=== PATIENT | female | born 1985 | race Caucasian/White ===

== ENCOUNTER 2016-06-16 13:22 | Emergency (ER) | payer MEDICARE, MEDICAID ==
[2016-06-16 13:45] VITALS: BP 91/62
--- NOTE | 2016-06-18 17:38 | UC ---
Abdominal Pain Female HPI - HPI Summary HPI Summary: Right sided flank pain and burning with urination began this evening - History of Current Complaint Chief Complaint: UCGI Stated Complaint: ABDOMINAL PAIN Time Seen by Provider: 06/16/16 13:53 Hx Obtained From: Patient Hx Last Menstrual Period: 06/12/16 ?: No Onset/Duration: Sudden Onset Timing: Constant Severity Initially: Moderate Severity Currently: Moderate Pain Intensity: 8 Pain Scale Used: 0-10 Numeric Location: Discrete At: RLQ - and flank pain Radiates: Yes Radiates to: Flank Character: Aching, Burning Aggravating Factor(s): Nothing Alleviating Factor(s): Nothing Associated Signs and Symptoms: Positive: Back Pain Allergies/Adverse Reactions: Allergies Allergy/AdvReac Type Severity Reaction Status Date / Time Penicillins Allergy Severe Anaphylatic Verified 06/16/16 15:01 Shock Aspirin Allergy Intermediate Hives Verified 06/16/16 15:01 Home Medications: Home Medications busPIRone TAB* [Buspar TAB*] 30 mg PO BID 06/16/16 [History Confirmed 06/16/16] PMH/Surg Hx/FS Hx/Imm Hx Previously Healthy: No Endocrine History Of: Denies: Diabetes, Thyroid Disease, Hyperthyroidism, Hypothyroidism, Dyslipidemia Cardiovascular History Of: Denies: Cardiac Disorders, Hypertension, Pacemaker/ICD, Myocardial Infarction , Congestive Heart Failure, Atrial Fibrillation, Deep Vein Thrombosis, Bleeding Disorders Respiratory History Of: Reports: Asthma Denies: COPD, Bronchitis, Pneumonia, Pulmonary Embolism GI/ History Of: Reports: Gastroesophageal Reflux Denies: Ulcer, Gastrointestinal Bleed, Gall Bladder Disease, Kidney Stones, Diverticulitis, Renal Disease, Urosepsis Neurological History Of: Denies: TIA, CVA, Dementia, Seizures, Migraine Psychological History Of: Reports: Anxiety, Depression, Post Traumatic Stress Disorder Cancer History Of: Denies: Lung Cancer, Colorectal Cancer, Breast Cancer, Prostate Cancer, Cervical Cancer Other History Of: Negative For: HIV, Hepatitis B, Hepatitis C, Anticoagulant Therapy - Surgical History Surgical History: Yes Surgery Procedure, Year, and Place: 2009 tubal ligation. ovarian cyst removal. wisdom teeth (2 removed). Cervical dysplagia - Family History Known Family History: Positive: Hypertension, Diabetes - Social History Occupation: Unemployed Lives: With Family Alcohol Use: None Substance Use Type: None Smoking Status (MU): Never Smoked Tobacco Have You Smoked in the Last Year: No - Immunization History Most Recent Influenza Vaccination: none Review of Systems Constitutional: Negative Skin: Negative Eyes: Negative ENT: Negative Respiratory: Negative Cardiovascular: Negative Gastrointestinal: Abdominal Pain Genitourinary: Negative Motor: Negative Neurovascular: Negative Musculoskeletal: Negative Neurological: Negative Psychological: Negative All Other Systems Reviewed And Are Negative: Yes Physical Exam Triage Information Reviewed: Yes Appearance: Well-Nourished, Ill-Appearing - mild, Pain Distress - mild Vital Signs: Initial Vital Signs Temp 98.3 F 06/16/16 13:37 Pulse 74 06/16/16 13:37 Resp 16 06/16/16 13:37 BP 91/62 06/16/16 13:37 Pulse Ox 100 06/16/16 13:37 Vital Signs Reviewed: Yes Eye Exam: Normal Eyes: Positive: Conjunctiva Clear ENT Exam: Normal ENT: Positive: Normal ENT inspection, Hearing grossly normal. Negative: Trismus , Muffled/hoarse voice Neck exam: Normal Neck: Positive: Supple, Nontender Respiratory Exam: Normal Respiratory: Positive: Chest non-tender, No respiratory distress, No accessory muscle use Cardiovascular Exam: Normal Cardiovascular: Positive: RRR, Pulses Normal, Brisk Capillary Refill Abdominal Exam: Normal Abdomen Description: Positive: No Organomegaly, Soft, CVA Tenderness (R) Bowel Sounds: Positive: Present Musculoskeletal Exam: Normal Musculoskeletal: Positive: Strength Intact, ROM Intact, No Edema Neurological Exam: Normal Neurological: Positive: Alert, Muscle Tone Normal Psychological Exam: Normal Psychological: Positive: Normal Response To Family Skin Exam: Normal Abd Pain Female Course/Dx - Course Course Of Treatment: transfer to [facility] for studies unable to be performed at urgent care this night - Differential Dx/Diagnosis Differential Diagnosis: Bowel Obstruction, Irritable Bowel Syndrome, Ovarian Cyst, Pelvic Inflammatory Disease, Renal Colic Provider Diagnoses: Abd Pain - Physician Notification/Consults Discussed Patient Care With: Oly Rossi Time Discussed With Above Provider: 15:00 Instructed by Provider To: Transfer Discharge - Discharge Plan Condition: Stable Disposition: AGAINST MEDICAL ADVICE
== END 2016-06-16 14:22 | disposition left against medical advice (07) ==
LOC: UCEAST 13:22
DX: R10.31 Right lower quadrant pain (principal); R30.0 Dysuria; M54.9 Dorsalgia, unspecified; Z32.02 Encounter for pregnancy test, result negative; Z88.6 Allergy status to analgesic agent; Z88.0 Allergy status to penicillin
CPT/HCPCS: 81025; 87086; 99212; G0463

== ENCOUNTER 2016-06-16 14:51 | Emergency (ER) | payer MEDICARE, MEDICAID ==
[2016-06-16 17:00] LABS: Hematocrit 29 % (35-47); Hemoglobin 8.7 g/dl (12.0-16.0); Mean Corpuscular HGB Conc 31 g/dl (31-36); Mean Corpuscular Hemoglobin 20 pg (27-31); Mean Platelet Volume 9 um3 (7.4-10.4); Red Blood Count 4.46 10^6/ul (4.0-5.4); Red Cell Distribution Width 18 % (10.5-15); White Blood Count 8.2 10^3/ul (3.5-10.8)
[2016-06-16 17:01] LABS: Comments Flag Yes
[2016-06-16 17:02] LABS: Mean Corpuscular Volume 64 fL (80-97)
[2016-06-16] MEDS ORDERED: Ondansetron INJ* 2 MG/ML VIAL IV ONE (17:13)
[2016-06-16] MEDS ORDERED: Morphine INJ* 4 MG/ML 1 ML CARPUJECT IV ONE (17:13)
[2016-06-16 17:36] LABS: Albumin 3.9 g/dL (3.2-5.2); BUN/Creatinine Ratio 21.3 (8-20); C Reactive Protein 1.25 mg/L (< 5.00); Calcium 8.9 mg/dL (8.6-10.3); EGFR African American 146.2 (>60); EGFR Non-African American 113.7 (>60); Globulin 3.3 g/dL (2-4); Potassium 3.4 mmol/L (3.5-5.0); Total Bilirubin 0.3 mg/dL (0.2-1.0); Total Protein 7.2 g/dL (6.4-8.9)
[2016-06-16] MEDS ORDERED: NS 0.9% 1000 ML* 1,000 ML IV ONE (17:46)
--- NOTE | 2016-06-16 18:43 | RAD ---
INDICATION: Bilateral flank pain. COMPARISON: CT November 13, 2010 TECHNIQUE: Longitudinal and transverse scans of the kidneys were obtained. FINDINGS: Kidneys: The kidneys are normal in size and echogenicity. No renal masses, calculi, or hydronephrosis is seen. The right kidney measures 10.7 x 5.5 x 4.5 cm and the left kidney 11.3 x 4.2 x 5.0 cm. Other: None IMPRESSION: NORMAL STUDY.
--- NOTE | 2016-06-16 18:44 | RAD ---
INDICATION: Pelvic pain COMPARISON: July 22, 2015 TECHNIQUE: Longitudinal and transverse transabdominal scans of the pelvis were obtained. FINDINGS: Uterus: The uterus is normal in size. There are no focal masses. The uterus measures 9.7 x 4.5 x 3.4 cm. Endometrial thickness: The endometrial thickness is measured at 0.8 cm. . Free fluid: There is no significant free fluid . Ovaries: The ovaries are normal in size. The right ovary measures 3.0 x 2.5 x 2.8 cm. The left ovary measures 2.7 x 1.8 x 2.2 cm. There are multiple small follicles bilaterally.. Doppler interrogation demonstrates flow to each ovary. Other: None IMPRESSION: NEGATIVE EXAMINATION.
--- NOTE | 2016-06-16 18:57 | ED ---
Abdominal Pain/Female - HPI Summary HPI Summary: Pt here w/ B/L LBP today. Started yesterday with lower pelvic pain - cramping and dysuria. Last BM was earlier today - "light". Denies exacerbating factors. Thought she had a UTI so took some AZO - denies h/o UTI's, kidney stones. Denies fever, chills, N/V/D, vaginal d/c. Does reports she's sexually active with a long time partner however they had been taking a break and recently rekindled their sexual relationship - have been active quite frequently as of late. No protection. LMP 1 week ago. Had a tubal ligation. Has h/o dysmenorrhea and menorrhagia. Had a cervical ablation - not sure why but denies issues w/ previous ab pain other than when on her period. Since she cannot take NSAID's, takes tylenol and when pain is extremely bad which is rarely, takes a percocet. H/o ovarian cysts. Followed by Dr. Sloan at [place]. GERD - triggered by lifestyle - takes PPI daily. Sx are worse if she misses a dose. - History of Current Complaint Hx Obtained From: Patient Hx Last Menstrual Period: 06/12/16 Pain Intensity: 8 <Oly Rossi - Last Filed: 06/18/16 22:42> <Dayan Garcia - Last Filed: 06/24/16 09:40> - History of Current Complaint Chief Complaint: EDBackInjuryPain Stated Complaint: LOWER BACK PAIN Time Seen by Provider: 06/16/16 16:11 Allergies/Adverse Reactions: Allergies Allergy/AdvReac Type Severity Reaction Status Date / Time Penicillins Allergy Severe Anaphylatic Verified 06/16/16 15:01 Shock Aspirin Allergy Intermediate Hives Verified 06/16/16 15:01 PMH/Surg Hx/FS Hx/Imm Hx Previously Healthy: Yes Endocrine/Hematology History: Denies: Hx Anticoagulant Therapy, Hx Blood Disorders, Hx Diabetes, Hx Thyroid Disease, Hx Unexplained Bleeding Cardiovascular History: Denies: Hx Congestive Heart Failure, Hx Deep Vein Thrombosis, Hx Hypertension , Hx Myocardial Infarction, Hx Pacemaker/ICD Respiratory History: Reports: Hx Asthma Denies: Hx Chronic Obstructive Pulmonary Disease (COPD), Hx Lung Cancer, Hx Pneumonia, Hx Pulmonary Embolism GI History: Reports: Hx Gastroesophageal Reflux Disease - daily PPI Denies: Hx Gall Bladder Disease, Hx Gastrointestinal Bleed, Hx Ulcer, Hx Urosepsis History: Denies: Hx Kidney Stones, Hx Renal Disease Neurological History: Denies: Hx Dementia, Hx Migraine, Hx Seizures, Hx Transient Ischemic Attacks (TIA) Psychiatric History: Reports: Hx Anxiety, Hx Depression - Surgical History Surgery Procedure, Year, and Place: 2009 tubal ligation. ovarian cyst removal. wisdom teeth (2 removed). Cervical dysplagia Infectious Disease History: No Infectious Disease History: Denies: Hx Clostridium Difficile, Hx Hepatitis, Hx Human Immunodeficiency Virus (HIV), Hx of Known/Suspected MRSA, Hx Shingles, Hx Tuberculosis, Hx Known/ Suspected VRE, Hx Known/Suspected VRSA, History Other Infectious Disease, Traveled Outside the [place] in Last 30 Days - Family History Known Family History: Positive: Hypertension, Diabetes - Social History Lives: With Family Alcohol Use: None Hx Substance Use: No Substance Use Type: Reports: None Hx Tobacco Use: No Smoking Status (MU): Never Smoked Tobacco Have You Smoked in the Last Year: No <Oly Rossi - Last Filed: 06/18/16 22:42> Review of Systems Constitutional: Negative Negative: Sore Throat, Ear Ache, Nasal Discharge Negative: Chest Pain Negative: Shortness Of Breath, Cough Gastrointestinal: Other - see HPI Positive: see HPI Musculoskeletal: Other - see HPI Skin: Negative Neurological: Negative Psychological: Normal All Other Systems Reviewed And Are Negative: Yes <Oly Rossi - Last Filed: 06/18/16 22:42> Physical Exam Triage Information Reviewed: Yes Vital Signs On Initial Exam: Initial Vitals Temp Pulse Resp BP Pulse Ox 98.3 F 87 16 106/65 100 06/16/16 14:57 06/16/16 14:57 06/16/16 14:57 06/16/16 14:57 06/16/16 14:57 Vital Signs Reviewed: Yes Appearance: Positive: No Pain Distress - generalized pallor - pt states this is her baseline w/ h/o anemia, Well-Nourished Skin: Positive: Warm, Dry Head/Face: Positive: Normal Head/Face Inspection Eyes: Positive: Normal, EOMI, Conjunctiva Clear - anicteric ENT: Positive: Hearing grossly normal, Other - mucosa somewhat dry Neck: Positive: Supple, Nontender Respiratory/Lung Sounds: Positive: Clear to Auscultation, Breath Sounds Present Cardiovascular: Positive: Normal, RRR, Pulses are Symmetrical in both Upper and Lower Extremities, S1, S2. Negative: Murmur, Rub, Leg Edema Left, Leg Edema Right Abdomen Description: Positive: Guarding, Other: - diffuse ab TTP - limited exam d/t pt requesting cessation of palpation; no rebounding. Negative: Bruit, CVA Tenderness (R), CVA Tenderness (L), Pulsatile Mass Pelvic Exam: Positive: external exam normal, no masses, discharge - watery, tender w/ cervical motion. Negative: active bleeding, cervicitis, lesions, tender adnexa Musculoskeletal: Positive: Normal, Strength/ROM Intact - spinous pp and paraspinal mm NTTP Neurological: Positive: Normal, Sensory/Motor Intact, Alert, Oriented to Person Place, Time, CN Intact II-III Psychiatric: Positive: Normal - [place] Coma Scale Coma Scale Total: 15 <Oly Rossi - Last Filed: 06/18/16 22:42> Vital Signs On Initial Exam: Initial Vitals Temp Pulse Resp BP Pulse Ox 98.3 F 87 16 106/65 100 06/16/16 14:57 06/16/16 14:57 06/16/16 14:57 06/16/16 14:57 06/16/16 14:57 <Dayan Garcia - Last Filed: 06/24/16 09:40> Diagnostics - Vital Signs Vital Signs Temp Pulse Resp BP Pulse Ox 06/16/16 17:45 88 100 06/16/16 17:43 100/50 06/16/16 14:57 98.3 F 87 16 106/65 100 - Laboratory Lab Results: Lab Results 06/16/16 06/16/16 06/16/16 Range/Units 16:50 16:50 16:50 WBC 8.2 (3.5-10.8) 10^3/ul RBC 4.46 (4.0-5.4) 10^6/ul Hgb 8.7 L (12.0-16.0) g/dl Hct 29 L (35-47) % MCV 64 L (80-97) fL MCH 20 L (27-31) pg MCHC 31 (31-36) g/dl RDW 18 H (10.5-15) % Plt Count 332 (150-450) 10^3/ul MPV 9 (7.4-10.4) um3 Neut % (Auto) 67.0 (38-83) % Lymph % (Auto) 25.8 (25-47) % [place] % (Auto) 5.1 (1-9) % Eos % (Auto) 1.3 (0-6) % Baso % (Auto) 0.8 (0-2) % Absolute Neuts (auto) 5.5 (1.5-7.7) 10^3/ul Absolute Lymphs (auto) 2.1 (1.0-4.8) 10^3/ul Absolute Monos (auto) 0.4 (0-0.8) 10^3/ul Absolute Eos (auto) 0.1 (0-0.6) 10^3/ul Absolute Basos (auto) 0.1 (0-0.2) 10^3/ul Absolute Nucleated RBC 0 10^3/ul Nucleated RBC % 0 INR (Anticoag Therapy) (0.89-1.11) APTT (26.0-36.3) seconds Sodium 137 (133-145) mmol/L Potassium 3.4 L (3.5-5.0) mmol/L Chloride 105 (101-111) mmol/L Carbon Dioxide 26 (22-32) mmol/L Anion Gap 6 (2-11) mmol/L BUN 13 (6-24) mg/dL Creatinine 0.61 (0.51-0.95) mg/dL Est GFR ( Amer) 146.2 (>60) Est GFR (Non-Af Amer) 113.7 (>60) BUN/Creatinine Ratio 21.3 H (8-20) Glucose 80 (70-100) mg/dL Lactic Acid 1.0 (0.5-2.0) mmol/L Calcium 8.9 (8.6-10.3) mg/dL Total Bilirubin 0.30 (0.2-1.0) mg/dL AST 16 (13-39) U/L ALT 11 (7-52) U/L Alkaline Phosphatase 56 (34-104) U/L C-Reactive Protein 1.25 (< 5.00) mg/L Total Protein 7.2 (6.4-8.9) g/dL Albumin 3.9 (3.2-5.2) g/dL Globulin 3.3 (2-4) g/dL Albumin/Globulin Ratio 1.2 (1-3) Lipase 19 (11.0-82.0) U/L Blood Type Antibody Screen 06/16/16 06/16/16 Range/Units 16:50 16:50 WBC (3.5-10.8) 10^3/ul RBC (4.0-5.4) 10^6/ul Hgb (12.0-16.0) g/dl Hct (35-47) % MCV (80-97) fL MCH (27-31) pg MCHC (31-36) g/dl RDW (10.5-15) % Plt Count (150-450) 10^3/ul MPV (7.4-10.4) um3 Neut % (Auto) (38-83) % Lymph % (Auto) (25-47) % [place] % (Auto) (1-9) % Eos % (Auto) (0-6) % Baso % (Auto) (0-2) % Absolute Neuts (auto) (1.5-7.7) 10^3/ul Absolute Lymphs (auto) (1.0-4.8) 10^3/ul Absolute Monos (auto) (0-0.8) 10^3/ul Absolute Eos (auto) (0-0.6) 10^3/ul Absolute Basos (auto) (0-0.2) 10^3/ul Absolute Nucleated RBC 10^3/ul Nucleated RBC % INR (Anticoag Therapy) 0.96 (0.89-1.11) APTT 29.5 (26.0-36.3) seconds Sodium (133-145) mmol/L Potassium (3.5-5.0) mmol/L Chloride (101-111) mmol/L Carbon Dioxide (22-32) mmol/L Anion Gap (2-11) mmol/L BUN (6-24) mg/dL Creatinine (0.51-0.95) mg/dL Est GFR ( Amer) (>60) Est GFR (Non-Af Amer) (>60) BUN/Creatinine Ratio (8-20) Glucose (70-100) mg/dL Lactic Acid (0.5-2.0) mmol/L Calcium (8.6-10.3) mg/dL Total Bilirubin (0.2-1.0) mg/dL AST (13-39) U/L ALT (7-52) U/L Alkaline Phosphatase (34-104) U/L C-Reactive Protein (< 5.00) mg/L Total Protein (6.4-8.9) g/dL Albumin (3.2-5.2) g/dL Globulin (2-4) g/dL Albumin/Globulin Ratio (1-3) Lipase (11.0-82.0) U/L Blood Type A Positive Antibody Screen Negative Result Diagrams: 06/16/16 16:50 06/16/16 16:50 Lab Statement: Any lab studies that have been ordered have been reviewed, and results considered in the medical decision making process. <Oly Rossi - Last Filed: 06/18/16 22:42> - Vital Signs Vital Signs Temp Pulse Resp BP Pulse Ox 06/16/16 19:00 97 100 06/16/16 18:00 87 98/58 99 06/16/16 17:45 88 100 06/16/16 17:43 100/50 06/16/16 14:57 98.3 F 87 16 106/65 100 - Laboratory Lab Results: Lab Results 06/16/16 06/16/16 06/16/16 Range/Units 16:50 16:50 16:50 WBC 8.2 (3.5-10.8) 10^3/ul RBC 4.46 (4.0-5.4) 10^6/ul Hgb 8.7 L (12.0-16.0) g/dl Hct 29 L (35-47) % MCV 64 L (80-97) fL MCH 20 L (27-31) pg MCHC 31 (31-36) g/dl RDW 18 H (10.5-15) % Plt Count 332 (150-450) 10^3/ul MPV 9 (7.4-10.4) um3 Neut % (Auto) 67.0 (38-83) % Lymph % (Auto) 25.8 (25-47) % [place] % (Auto) 5.1 (1-9) % Eos % (Auto) 1.3 (0-6) % Baso % (Auto) 0.8 (0-2) % Absolute Neuts (auto) 5.5 (1.5-7.7) 10^3/ul Absolute Lymphs (auto) 2.1 (1.0-4.8) 10^3/ul Absolute Monos (auto) 0.4 (0-0.8) 10^3/ul Absolute Eos (auto) 0.1 (0-0.6) 10^3/ul Absolute Basos (auto) 0.1 (0-0.2) 10^3/ul Absolute Nucleated RBC 0 10^3/ul Nucleated RBC % 0 INR (Anticoag Therapy) (0.89-1.11) APTT (26.0-36.3) seconds Sodium 137 (133-145) mmol/L Potassium 3.4 L (3.5-5.0) mmol/L Chloride 105 (101-111) mmol/L Carbon Dioxide 26 (22-32) mmol/L Anion Gap 6 (2-11) mmol/L BUN 13 (6-24) mg/dL Creatinine 0.61 (0.51-0.95) mg/dL Est GFR ( Amer) 146.2 (>60) Est GFR (Non-Af Amer) 113.7 (>60) BUN/Creatinine Ratio 21.3 H (8-20) Glucose 80 (70-100) mg/dL Lactic Acid 1.0 (0.5-2.0) mmol/L Calcium 8.9 (8.6-10.3) mg/dL Total Bilirubin 0.30 (0.2-1.0) mg/dL AST 16 (13-39) U/L ALT 11 (7-52) U/L Alkaline Phosphatase 56 (34-104) U/L C-Reactive Protein 1.25 (< 5.00) mg/L Total Protein 7.2 (6.4-8.9) g/dL Albumin 3.9 (3.2-5.2) g/dL Globulin 3.3 (2-4) g/dL Albumin/Globulin Ratio 1.2 (1-3) Lipase 19 (11.0-82.0) U/L Urine Color Urine Appearance Urine pH (5-9) Ur Specific [place] (1.010-1.030) Urine Protein (Negative) Urine Ketones (Negative) Urine Blood (Negative) Urine Nitrate (Negative) Urine Bilirubin (Negative) Urine Urobilinogen (Negative) Ur Leukocyte Esterase (Negative) Urine WBC (Auto) (Absent) Urine RBC (Auto) (Absent) Ur Squamous Epith Cells (Absent) Urine Bacteria (Absent) Urine Glucose (Negative) Urine Ascorbic Acid (Negative) C.trachomatis (Amp Det) (Negative) N.gonorrhoeae (Amp Det) (Negative) T.vaginalis (Amp Det) (Negative) Blood Type Antibody Screen 06/16/16 06/16/16 06/16/16 Range/Units 16:50 16:50 18:42 WBC (3.5-10.8) 10^3/ul RBC (4.0-5.4) 10^6/ul Hgb (12.0-16.0) g/dl Hct (35-47) % MCV (80-97) fL MCH (27-31) pg MCHC (31-36) g/dl RDW (10.5-15) % Plt Count (150-450) 10^3/ul MPV (7.4-10.4) um3 Neut % (Auto) (38-83) % Lymph % (Auto) (25-47) % [place] % (Auto) (1-9) % Eos % (Auto) (0-6) % Baso % (Auto) (0-2) % Absolute Neuts (auto) (1.5-7.7) 10^3/ul Absolute Lymphs (auto) (1.0-4.8) 10^3/ul Absolute Monos (auto) (0-0.8) 10^3/ul Absolute Eos (auto) (0-0.6) 10^3/ul Absolute Basos (auto) (0-0.2) 10^3/ul Absolute Nucleated RBC 10^3/ul Nucleated RBC % INR (Anticoag Therapy) 0.96 (0.89-1.11) APTT 29.5 (26.0-36.3) seconds Sodium (133-145) mmol/L Potassium (3.5-5.0) mmol/L Chloride (101-111) mmol/L Carbon Dioxide (22-32) mmol/L Anion Gap (2-11) mmol/L BUN (6-24) mg/dL Creatinine (0.51-0.95) mg/dL Est GFR ( Amer) (>60) Est GFR (Non-Af Amer) (>60) BUN/Creatinine Ratio (8-20) Glucose (70-100) mg/dL Lactic Acid (0.5-2.0) mmol/L Calcium (8.6-10.3) mg/dL Total Bilirubin (0.2-1.0) mg/dL AST (13-39) U/L ALT (7-52) U/L Alkaline Phosphatase (34-104) U/L C-Reactive Protein (< 5.00) mg/L Total Protein (6.4-8.9) g/dL Albumin (3.2-5.2) g/dL Globulin (2-4) g/dL Albumin/Globulin Ratio (1-3) Lipase (11.0-82.0) U/L Urine Color [place] Urine Appearance Clear Urine pH 5.0 (5-9) Ur Specific [place] 1.026 (1.010-1.030) Urine Protein Negative (Negative) Urine Ketones Trace H (Negative) Urine Blood Negative (Negative) Urine Nitrate Positive H (Negative) Urine Bilirubin Negative (Negative) Urine Urobilinogen Positive H (Negative) Ur Leukocyte Esterase Negative (Negative) Urine WBC (Auto) Trace(0-5/hpf) (Absent) Urine RBC (Auto) 1+(3-5/hpf) H (Absent) Ur Squamous Epith Cells Present H (Absent) Urine Bacteria 1+ H (Absent) Urine Glucose Negative (Negative) Urine Ascorbic Acid * H (Negative) C.trachomatis (Amp Det) (Negative) N.gonorrhoeae (Amp Det) (Negative) T.vaginalis (Amp Det) (Negative) Blood Type A Positive Antibody Screen Negative 06/16/16 Range/Units 18:54 WBC (3.5-10.8) 10^3/ul RBC (4.0-5.4) 10^6/ul Hgb (12.0-16.0) g/dl Hct (35-47) % MCV (80-97) fL MCH (27-31) pg MCHC (31-36) g/dl RDW (10.5-15) % Plt Count (150-450) 10^3/ul MPV (7.4-10.4) um3 Neut % (Auto) (38-83) % Lymph % (Auto) (25-47) % [place] % (Auto) (1-9) % Eos % (Auto) (0-6) % Baso % (Auto) (0-2) % Absolute Neuts (auto) (1.5-7.7) 10^3/ul Absolute Lymphs (auto) (1.0-4.8) 10^3/ul Absolute Monos (auto) (0-0.8) 10^3/ul Absolute Eos (auto) (0-0.6) 10^3/ul Absolute Basos (auto) (0-0.2) 10^3/ul Absolute Nucleated RBC 10^3/ul Nucleated RBC % INR (Anticoag Therapy) (0.89-1.11) APTT (26.0-36.3) seconds Sodium (133-145) mmol/L Potassium (3.5-5.0) mmol/L Chloride (101-111) mmol/L Carbon Dioxide (22-32) mmol/L Anion Gap (2-11) mmol/L BUN (6-24) mg/dL Creatinine (0.51-0.95) mg/dL Est GFR ( Amer) (>60) Est GFR (Non-Af Amer) (>60) BUN/Creatinine Ratio (8-20) Glucose (70-100) mg/dL Lactic Acid (0.5-2.0) mmol/L Calcium (8.6-10.3) mg/dL Total Bilirubin (0.2-1.0) mg/dL AST (13-39) U/L ALT (7-52) U/L Alkaline Phosphatase (34-104) U/L C-Reactive Protein (< 5.00) mg/L Total Protein (6.4-8.9) g/dL Albumin (3.2-5.2) g/dL Globulin (2-4) g/dL Albumin/Globulin Ratio (1-3) Lipase (11.0-82.0) U/L Urine Color Urine Appearance Urine pH (5-9) Ur Specific [place] (1.010-1.030) Urine Protein (Negative) Urine Ketones (Negative) Urine Blood (Negative) Urine Nitrate (Negative) Urine Bilirubin (Negative) Urine Urobilinogen (Negative) Ur Leukocyte Esterase (Negative) Urine WBC (Auto) (Absent) Urine RBC (Auto) (Absent) Ur Squamous Epith Cells (Absent) Urine Bacteria (Absent) Urine Glucose (Negative) Urine Ascorbic Acid (Negative) C.trachomatis (Amp Det) Negative (Negative) N.gonorrhoeae (Amp Det) Negative (Negative) T.vaginalis (Amp Det) Negative (Negative) Blood Type Antibody Screen Result Diagrams: 06/16/16 16:50 06/16/16 16:50 Lab Statement: Any lab studies that have been ordered have been reviewed, and results considered in the medical decision making process. <Dayan Garcia - Last Filed: 06/24/16 09:40> Abdominal Pain Fem Course/Dx - Course Course Of Treatment: Pt's sx correlate w/ a UTI, possibly involving kidneys. D/ t lack of fever, vomiting and normal WBC's, will treat for UTI in the face of recent sexual activity increase. Will also cover for BV as pt has watery d/c and CMT - tx'd here for PID. TVUS normal. Explained if other tests return positive, she will be notified. Pt also agrees to f/u w/ her PCP and return to ED if danger s/sx present. NOTE: pt's RBC's are low however this is comparable to previous labs and she has chronic anemia - takes iron and is followed by PCP. Advised f/u CHRISTINE to review new labs w/ PCP - vitals do not reflect acute anemia here today. Diff dx: constipation <Oly Rossi - Last Filed: 06/18/16 22:42> <Dayan Garcia - Last Filed: 06/24/16 09:40> - Diagnoses Provider Diagnoses: UTI (urinary tract infection), Cervical motion tenderness Discharge <Oly Rossi - Last Filed: 06/18/16 22:42> <Dayan Garcia - Last Filed: 06/24/16 09:40> - Discharge Plan Condition: Stable Disposition: HOME Prescriptions: Ciprofloxacin TAB* [Cipro Tab*] 500 mg PO BID #14 tab Clindamycin Phosphate Vaginal [Cleocin] 2 % [facility] BEDTIME #1 tube Patient Education Materials: Pelvic Inflammatory Disease (ED), Urinary Tract Infection in Women (ED) Referrals: Josse Sloan MD [Primary Care Provider] - Additional Instructions: Follow-up with PCP this week. *If symptoms worsen or you develop vomiting, diarrhea, fever, inability to urinate, return to ED NOTE: you also appear to have anemia. Your lab levels are comparable to July 2015 and you are not reporting new onset of symptoms today. Your vital signs are stable and so you are advised to follow-up with your PCP regarding this condition. If you develop acute bleeding or bruising and/or shortness of breath, chest pain, difficulty breathing, dizziness, lightheadedness, acute fatigue, return to ED Attestations User Type: Provider - I was available for consult. This patient was seen by the advanced practice provider. The patient was not presented to, seen by, or examined by me. - Do <Dayan Garcia - Last Filed: 06/24/16 09:40>
[2016-06-16 18:59] LABS: Urine Bacteria 1+ (Absent); Urine Bilirubin Negative (Negative); Urine Glucose Negative (Negative); Urine Nitrite Positive (Negative)
[2016-06-16] MEDS ORDERED: Azithromycin TAB* 250 MG PO ONE (19:05)
[2016-06-16] MEDS ORDERED: Ciprofloxacin TAB* 500 MG PO ONE (19:13)
[2016-06-16 19:45] VITALS: BP 98/58
== END 2016-06-16 19:45 | disposition home or self-care (01) ==
LOC: ED 14:51
DX: N39.0 Urinary tract infection, site not specified (principal); N94.89 Other specified conditions associated with female genital organs and menstrual cycle; J45.909 Unspecified asthma, uncomplicated; K21.9 Gastro-esophageal reflux disease without esophagitis; Z88.0 Allergy status to penicillin; Z88.6 Allergy status to analgesic agent
CPT/HCPCS: 36415; 76775; 76856; 80053; 81003; 81015; 81025; 83605; 83690; 85025; 85610; 85730; 86140; 86850; 86900; 86901; 87086; 87480; 87491; 87510; 87591; 87661; 96360; 99212; 99284; A9270-GY; G0463; J2270; J2405

== ENCOUNTER → 2016-10-22 10:27 | Emergency (ER) | payer MEDICARE, MEDICAID ==
[2016-10-22 10:35] VITALS: BP 107/62
--- NOTE | 2016-10-22 12:36 | ED ---
Headache - HPI Summary HPI Summary: Pt here w/ MCLEAN x 3 days. constant sharp - posterior head/neck and wraps all around scalp. "feels like electricity shooting through my head" Feels like she got smacked in the back of her neck w/ a blunt object - denies recent or remote trauma and no h/o cervical/head injury waking from sleep w/ pain H/o migraines - doesn't feel same - has tried ibuprofen and tylenol w/o relief. Was on tramadol and imitrex in the past - hasn't taken in 8 yrs now. Takes gabapentin for fibromyalgia - no dose changes as of late No fever, chills, N/V/D, photosensitivity, phonophobia, numbness, tingling, weakness, URI sx H/o anemia - cooler more than usual, eating a lot of ice, intermittent calf pain , fatigued. Denies bleeding from gums, hematochezia, hematuria. H/o heavy periods. Working w/ [facility] to schedule a procedure to reduce this (ablation?). Has taken iron for this in the past. - History Of Current Complaint Chief Complaint: EDHeadache Stated Complaint: HEADACHE 4DAYS Time Seen by Provider: 10/22/16 12:00 Hx Obtained From: Patient Hx Last Menstrual Period: 06/12/16 - Allergies/Home Medications Allergies/Adverse Reactions: Allergies Allergy/AdvReac Type Severity Reaction Status Date / Time Penicillins Allergy Severe Anaphylatic Verified 06/16/16 15:01 Shock Aspirin Allergy Intermediate Hives Verified 06/16/16 15:01 PMH/Surg Hx/FS Hx/Imm Hx Previously Healthy: Yes Endocrine/Hematology History: Reports: Hx Anemia - taking iron at one point Denies: Hx Anticoagulant Therapy, Hx Blood Disorders, Hx Diabetes, Hx Thyroid Disease, Hx Unexplained Bleeding Cardiovascular History: Denies: Hx Congestive Heart Failure, Hx Deep Vein Thrombosis, Hx Hypertension , Hx Myocardial Infarction, Hx Pacemaker/ICD Respiratory History: Reports: Hx Asthma Denies: Hx Chronic Obstructive Pulmonary Disease (COPD), Hx Lung Cancer, Hx Pneumonia, Hx Pulmonary Embolism GI History: Reports: Hx Gastroesophageal Reflux Disease - daily PPI Denies: Hx Gall Bladder Disease, Hx Gastrointestinal Bleed, Hx Ulcer, Hx Urosepsis History: Denies: Hx Kidney Stones, Hx Renal Disease Musculoskeletal History: Reports: Hx Fibromyalgia - takes gabapentin Denies: Hx Scoliosis Neurological History: Denies: Hx Dementia, Hx Headaches, Hx Migraine, Hx Seizures, Hx Transient Ischemic Attacks (TIA), Other Neuro Impairments/Disorders Psychiatric History: Reports: Hx Anxiety, Hx Depression, 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 ovarian cyst removal. wisdom teeth (2 removed). Cervical dysplagia Infectious Disease History: No Infectious Disease History: Denies: Hx Clostridium Difficile, Hx Hepatitis, Hx Human Immunodeficiency Virus (HIV), Hx of Known/Suspected MRSA, Hx Shingles, Hx Tuberculosis, Hx Known/ Suspected VRE, Hx Known/Suspected VRSA, History Other Infectious Disease, Traveled Outside the [place] in Last 30 Days - Family History Known Family History: Positive: Hypertension, Diabetes - Social History Lives: With Family Alcohol Use: None Hx Substance Use: No Substance Use Type: Reports: None Hx Tobacco Use: No Smoking Status (MU): Never Smoked Tobacco Have You Smoked in the Last Year: No Review of Systems Positive: Fatigue. Negative: Fever, Chills Positive: Diplopia. Negative: Photophobia, Blurred Vision Negative: Epistaxis, Dental Pain, Sore Throat, Ear Ache, Nasal Discharge Negative: Chest Pain Negative: Shortness Of Breath Gastrointestinal: Negative Negative: Abdominal Pain, Vomiting, Diarrhea, Nausea Negative: hematuria Musculoskeletal: Negative Skin: Negative Negative: Bruising Positive: Headache. Negative: Weakness, Paresthesia, Numbness, Syncope, Slurred Speech Psychological: Normal - but calm All Other Systems Reviewed And Are Negative: Yes Physical Exam Triage Information Reviewed: Yes Vital Signs On Initial Exam: Initial Vitals Temp Pulse Resp Pulse Ox 98.0 F 85 20 100 10/22/16 10:31 10/22/16 10:31 10/22/16 10:31 10/22/16 10:31 Vital Signs Reviewed: Yes Appearance: Positive: Well-Appearing - generalized pallor, No Pain Distress, Well-Nourished Skin: Positive: Warm - no signs of excessive bruising, Dry Head/Face: Positive: Normal Head/Face Inspection Eyes: Positive: Normal, EOMI, Conjunctiva Clear - pallor ENT: Positive: Hearing grossly normal, Pharynx normal, TMs normal, Other - mucosal pallor. Negative: Nasal congestion, Nasal drainage Neck: Positive: Supple, Nontender - no nodules, no gross thyromegaly, Other: - trapezius mm at base of skull and into shoulders are TTP and hypertonic B/L Respiratory/Lung Sounds: Positive: Clear to Auscultation, Breath Sounds Present Cardiovascular: Positive: Normal, RRR, Pulses are Symmetrical in both Upper and Lower Extremities, S1, S2. Negative: Murmur, Rub Abdomen Description: Positive: Nontender, Soft Bowel Sounds: Positive: Present Musculoskeletal: Positive: Normal, Strength/ROM Intact Neurological: Positive: Normal, Sensory/Motor Intact, Alert, Oriented to Person Place, Time, CN Intact II-III, Other - (-) Martita; (-) Elian Psychiatric: Positive: Normal - [place] Coma Scale Coma Scale Total: 15 Diagnostics - Vital Signs Vital Signs Temp Pulse Resp BP Pulse Ox 10/22/16 10:33 98.0 F 92 20 107/62 100 10/22/16 10:31 98.0 F 85 20 100 - Laboratory Result Diagrams: 10/22/16 12:30 10/22/16 12:30 Lab Statement: Any lab studies that have been ordered have been reviewed, and results considered in the medical decision making process. Headache Course/Dx - Course Course Of Treatment: Pt presents w/ 3 day MCLEAN, different from her migraines. Denies trauma and s/sx of infection however does have a h/o anemia as well as ice cravings, calf cramps, fatigue and feeling cool all the time. Labs checked and pt appears to have anemia which is stable compared to last draw in 2016. This could be the cause of her headache for the past 3 days but w/o a change in H&H, it may not be the cause. She does report a possible known source , menorrhagia, which she is working on addressing with her [facility]. She reported chest pain during her w/u here today and so an ECG was performed. Pt was found to have NSR. Her labs also revealed hypoglycemia. She has a h/o GERD which could also have been causing her CP as it appeared she had not eaten in a while. She was given a sandwich. She reported needing to leave to get her children even though her w/u was not complete. I did not have a chance to f/u on CP after eating and to further discuss possible causes of MCLEAN today, including but not limited to tension MCLEAN, anemia, SAH. She left before further testing such as CT scan, LP, etc could be offered. Discussed w/ Dr. Lofton. - Diagnoses Provider Diagnoses: Headache, Anemia - Physician Notifications Discussed Care Of Patient With: Dr. Lofton Discharge - Discharge Plan Condition: Stable Disposition: AGAINST MEDICAL ADVICE Referrals: Josse Sloan MD [Primary Care Provider] -
[2016-10-22 12:54] LABS: Hematocrit 28 % (35-47); Hemoglobin 8.2 g/dl (12.0-16.0); Mean Corpuscular HGB Conc 29 g/dl (31-36); Mean Corpuscular Hemoglobin 18 pg (27-31); Mean Platelet Volume 9 um3 (7.4-10.4); Red Cell Distribution Width 18 % (10.5-15); White Blood Count 4.8 10^3/ul (3.5-10.8)
[2016-10-22 12:57] LABS: Comments Flag Yes; Mean Corpuscular Volume 62 fL (80-97)
[2016-10-22 13:10] LABS: ALT 10 U/L (7-52); AST 15 U/L (13-39); Albumin 3.5 g/dL (3.2-5.2); Alkaline Phosphatase 42 U/L (34-104); Anion Gap 4 mmol/L (2-11); BUN/Creatinine Ratio 17.4 (8-20); Blood Urea Nitrogen 12 mg/dL (6-24); CO2 Carbon Dioxide 25 mmol/L (22-32); Calcium 8.5 mg/dL (8.6-10.3); Chloride 107 mmol/L (101-111); EGFR African American 126.8 (>60); EGFR Non-African American 98.6 (>60); Glucose 67 mg/dL (70-100); Magnesium 1.9 mg/dL (1.9-2.7); Potassium 3.7 mmol/L (3.5-5.0); Sodium 136 mmol/L (133-145); Total Protein 6.5 g/dL (6.4-8.9)
[2016-10-22 13:21] LABS: Total Iron Binding Capacity 424 mcg/dL (250-450); Transferrin 303 mg/dL (203-362)
[2016-10-22 13:31] LABS: TSH (Thyroid Stimulating Horm) 1.15 mcIU/mL (0.34-5.60)
[2016-10-22 15:24] LABS: Iron < 15 ug/dL (50-212)
== END | disposition home or self-care (01) ==
LOC: ED 10:27
DX: R51 Headache (principal); D64.9 Anemia, unspecified; K21.9 Gastro-esophageal reflux disease without esophagitis; M79.7 Fibromyalgia; Z88.0 Allergy status to penicillin; Z88.6 Allergy status to analgesic agent
CPT/HCPCS: 36415; 80053; 83540; 83550; 83735; 84443; 85025; 93005; 99282

== ENCOUNTER 2016-10-24 11:02 | Emergency (ER) | payer MEDICARE, MEDICAID ==
[2016-10-24] MEDS ORDERED: Ketorolac INJ* 60 MG/2 ML VIAL IM ONE (13:53)
[2016-10-24 13:54] VITALS: BP 102/51
--- NOTE | 2016-10-24 13:54 | UC ---
Headache HPI - HPI Summary HPI Summary: 5 days of headache coming up back of neck spreading over head---head and neck tender to touch, no neuro deficits, not similar to past migraine - History Of Current Complaint Chief Complaint: UCHeadache Stated Complaint: HEADACHE Time Seen by Provider: 10/24/16 13:43 Hx Obtained From: Patient Hx Last Menstrual Period: OCTOBER 2 ?: No Onset/Duration: Gradual Onset, Lasting Days - 5, Still Present Onset Of Symptoms: Gradual Initially Headache Was: Moderate Timing: Constant Character: Throbbing, Pressure Location of Headache: Diffuse Aggravating Factor: Nothing Allevating Factors: Nothing Associated Signs And Symptoms: Positive: Negative - Allergies/Home Medications Allergies/Adverse Reactions: Allergies Allergy/AdvReac Type Severity Reaction Status Date / Time Penicillins Allergy Severe Anaphylatic Verified 06/16/16 15:01 Shock Aspirin Allergy Intermediate Hives Verified 06/16/16 15:01 PMH/Surg Hx/FS Hx/Imm Hx Previously Healthy: No Endocrine History Of: Denies: Diabetes, Thyroid Disease, Hyperthyroidism, Hypothyroidism, Dyslipidemia Cardiovascular History Of: Denies: Cardiac Disorders, Hypertension, Pacemaker/ICD, Myocardial Infarction , Congestive Heart Failure, Atrial Fibrillation, Deep Vein Thrombosis, Bleeding Disorders Respiratory History Of: Reports: Asthma Denies: COPD, Bronchitis, Pneumonia, Pulmonary Embolism GI/ History Of: Reports: Gastroesophageal Reflux Denies: Ulcer, Gastrointestinal Bleed, Gall Bladder Disease, Kidney Stones, Diverticulitis, Renal Disease, Urosepsis Neurological History Of: Denies: TIA, CVA, Dementia, Seizures, Migraine Psychological History Of: Reports: Anxiety, Depression, Post Traumatic Stress Disorder Cancer History Of: Denies: Lung Cancer, Colorectal Cancer, Breast Cancer, Prostate Cancer, Cervical Cancer Other History Of: Negative For: HIV, Hepatitis B, Hepatitis C, Anticoagulant Therapy - Surgical History Surgical History: Yes Surgery Procedure, Year, and Place: 2009 tubal ligation. ovarian cyst removal. wisdom teeth (2 removed). Cervical dysplagia - Family History Known Family History: Positive: Hypertension, Diabetes - Social History Occupation: Employed Full-time - house keeper Alcohol Use: None Substance Use Type: None Smoking Status (MU): Never Smoked Tobacco Have You Smoked in the Last Year: No - Immunization History Most Recent Influenza Vaccination: none Review of Systems Constitutional: Negative Skin: Negative Eyes: Negative ENT: Negative Respiratory: Negative Cardiovascular: Negative Gastrointestinal: Negative Genitourinary: Negative Motor: Negative Neurovascular: Negative Musculoskeletal: Negative Neurological: Headache Psychological: Negative All Other Systems Reviewed And Are Negative: Yes Physical Exam Triage Information Reviewed: Yes Appearance: Well-Appearing, No Pain Distress, Well-Nourished Vital Signs: Initial Vital Signs Temp 98.0 F 10/24/16 13:44 Pulse 89 10/24/16 13:44 Resp 16 10/24/16 13:44 BP 102/51 10/24/16 13:44 Pulse Ox 100 10/24/16 13:44 Vital Signs Reviewed: Yes Eye Exam: Normal Eyes: Positive: Conjunctiva Clear ENT Exam: Normal ENT: Positive: Normal ENT inspection, Hearing grossly normal. Negative: Nasal congestion, Nasal drainage, Trismus, Muffled/hoarse voice Dental Exam: Normal Neck exam: Normal Neck: Positive: Supple, Nontender, No Lymphadenopathy, Other: - skin is painful to touch full rom with out pain Respiratory Exam: Normal Respiratory: Positive: Chest non-tender, Lungs clear, Normal breath sounds, No respiratory distress Cardiovascular Exam: Normal Cardiovascular: Positive: RRR, No Murmur, Pulses Normal, Brisk Capillary Refill Musculoskeletal Exam: Normal Musculoskeletal: Positive: Strength Intact, ROM Intact, No Edema Neurological Exam: Normal Neurological: Positive: Alert, Muscle Tone Normal Psychological Exam: Normal Skin Exam: Normal Headache Course/Dx - Course Course Of Treatment: toradal, flexeril, rest, follow with pcp - Differential Dx/Diagnosis Differential Diagnosis/HQI/PQRI: Migraine, Sinus Headache, Tension Headache, Viral Syndrome Provider Diagnoses: Tension Headache Discharge - Discharge Plan Condition: Stable Disposition: HOME Prescriptions: Cyclobenzaprine TAB* [Flexeril 10 MG TAB*] 10 mg PO TID PRN #15 tab PRN Reason: MUscular pain Ketorolac TAB * [Toradol TAB *] 10 mg PO TID PRN #12 tab PRN Reason: Pain Patient Education Materials: Tension Headache (ED), Acute Headache (ED) Referrals: Josse Sloan MD [Primary Care Provider] - 5 Days
[2016-10-24] MEDS ORDERED: Cyclobenzaprine TAB* 10 MG PO ONE (14:31)
--- NOTE | 2016-10-24 20:20 | UC ---
Progress - Progress Note Progress Note: phone call from [facility] pharmacy---Toradol is not covered by insurance Changed RX to Mobic 7.5mg po bid prn #20
== END 2016-10-24 14:32 | disposition home or self-care (01) ==
LOC: UCEAST 11:02
DX: G44.209 Tension-type headache, unspecified, not intractable (principal); J45.909 Unspecified asthma, uncomplicated; K21.9 Gastro-esophageal reflux disease without esophagitis; Z88.6 Allergy status to analgesic agent; Z88.0 Allergy status to penicillin; F41.8 Other specified anxiety disorders
CPT/HCPCS: 96372; 99212; A9270-GY; G0463; J1885

== ENCOUNTER 2016-12-01 09:53 | Emergency (ER) | payer MEDICARE, MEDICAID ==
[2016-12-01 10:02] VITALS: BP 101/54
--- NOTE | 2016-12-01 10:56 | UC ---
Complaint Female HPI - HPI Summary HPI Summary: TWO DAYS OF VAGINAL ITCHING AND BURNING WITH URINATION. NO FEVER. NO ABDOMINAL PAIN. NO NEW SEXUAL PARTNERS. NO LOW BACK PAIN - History Of Current Complaint Chief Complaint: UCGU Stated Complaint: UTI/YEAST INFECTION Time Seen by Provider: 12/01/16 10:05 Hx Obtained From: Patient Hx Last Menstrual Period: 11/29/16 Onset/Duration: Gradual Onset, Lasting Days, Still Present Timing: Intermittent Severity Initially: Mild Severity Currently: Mild Pain Intensity: 2 Pain Scale Used: 0-10 Numeric Character: Dull, Burning Aggravating Factor(s): Urination Associated Signs And Symptoms: Negative: Fever, Back Pain, Vaginal Bleeding/ Discharge, Vaginal Discharge, Nausea, Vomiting(# Of Episodes =) - Risk Factors Ectopic Risk Factor: Negative Ovarian Torsion Risk Factor: Negative - Allergies/Home Medications Allergies/Adverse Reactions: Allergies Allergy/AdvReac Type Severity Reaction Status Date / Time Penicillins Allergy Severe Anaphylatic Verified 12/01/16 10:04 Shock Aspirin Allergy Intermediate Hives Verified 12/01/16 10:04 PMH/Surg Hx/FS Hx/Imm Hx Previously Healthy: Yes Other History Of: Negative For: HIV, Hepatitis B, Hepatitis C, Anticoagulant Therapy - Surgical History Surgical History: Yes Surgery Procedure, Year, and Place: 2009 tubal ligation. ovarian cyst removal. wisdom teeth (2 removed). Cervical dysplagia - Family History Known Family History: Positive: Hypertension, Diabetes - Social History Occupation: Employed Full-time Lives: With Family Alcohol Use: None Substance Use Type: None Smoking Status (MU): Never Smoked Tobacco Have You Smoked in the Last Year: No - Immunization History Most Recent Influenza Vaccination: none Review of Systems Constitutional: Negative Skin: Negative Eyes: Negative ENT: Negative Respiratory: Negative Cardiovascular: Negative Gastrointestinal: Negative Genitourinary: Dysuria Motor: Negative Neurovascular: Negative Musculoskeletal: Negative Neurological: Negative Psychological: Negative All Other Systems Reviewed And Are Negative: Yes Physical Exam Triage Information Reviewed: Yes Appearance: Well-Appearing, No Pain Distress, Well-Nourished Vital Signs: Initial Vital Signs Temp 97.7 F 12/01/16 09:59 Resp 20 12/01/16 09:59 BP 101/54 12/01/16 09:59 Pulse Ox 99 12/01/16 09:59 Vital Signs Reviewed: Yes Eye Exam: Normal ENT Exam: Normal ENT: Positive: Normal ENT inspection, TMs normal Dental Exam: Normal Neck exam: Normal Neck: Positive: Supple, Nontender, No Lymphadenopathy Respiratory Exam: Normal Respiratory: Positive: Chest non-tender, Lungs clear, Normal breath sounds, No respiratory distress, No accessory muscle use Cardiovascular Exam: Normal Cardiovascular: Positive: RRR, No Murmur, Pulses Normal, Brisk Capillary Refill Abdominal Exam: Normal Abdomen Description: Positive: Nontender, No Organomegaly, Soft, Other: - EXTERNAL GENITALIA VISUALIZED, NO LESIONS OR RASHES NOTED. SCANT BLOOD, CONSISTENT WITH RECENT PERIOD, BUT NO OTHER DISCHARGE NOTED IN THE VAGINAL VAULT. NO CERVICAL TENDERNESS, PATIENT TOLERATED PROCEDURE WELL. Musculoskeletal Exam: Normal Musculoskeletal: Positive: Strength Intact, ROM Intact, No Edema Neurological Exam: Normal Psychological Exam: Normal Psychological: Positive: Normal Response To Family Skin Exam: Normal Complaint Female Dx - Differential Dx/Diagnosis Differential Diagnosis/HQI/PQRI: Cervicitis, Urinary Tract Infection Provider Diagnoses: DYSURIA; VAGINITIS Discharge - Discharge Plan Condition: Stable Disposition: HOME Prescriptions: Fluconazole [Diflucan 150 MG (NF)] 150 mg PO ONCE #1 tab Metronidazole [Flagyl 500 MG TAB] 500 mg PO BID #14 tab Patient Education Materials: Vaginitis (ED), Dysuria (ED) Referrals: Josse Sloan MD [Primary Care Provider] -
--- NOTE | 2016-12-03 16:58 | UC ---
Progress - Progress Note Progress Note: October d/c flagyl, if she has continued sx follow with pcp or return to ed or urgent care Hilda Angelap-C
== END 2016-12-01 10:44 | disposition home or self-care (01) ==
LOC: UCEAST 09:53
DX: N76.0 Acute vaginitis (principal)
CPT/HCPCS: 81003; 87070; 87480; 87491; 87510; 87591; 87661; 99212; G0463

== ENCOUNTER 2018-01-14 17:41 | Emergency (ER) | payer MEDICARE, MEDICAID ==
--- NOTE | 2018-01-14 18:16 | UC ---
Abdominal Pain Female HPI - HPI Summary HPI Summary: The pt is a 32 y/o female presenting to c/o sharp and stabbing abdominal pain since yesterday, evening worsened today morning. It started with bloody diarrhea yesterday evening and had mucous-filled diarrhea at 03:00 this morning . She has had about 8 bowel movements today. The pt had pizza and a calzone yesterday after returning from [facility] but does not suspect any food poisoning. She denies a Fhx of Crohns and other GI disorders. She notes nausea ( VASCULAR TECHNOLOGIST SONOGRAPHER), diaphoresis , lightheadedness , loss of appetite, melena , and fatigue but denies difficulty ambulating , fever , or a dry mouth. The abd pain is aggravated by eating and drinking. The pt is allergic to Penicillin . This is scribe Chacha Gray documenting for attending Dr. Adalid Cooper. I, Dr. Adalid Cooper , personally performed the services described in this documentation as scribed in my presence and it is both accurate and complete. - History of Current Complaint Chief Complaint: UCGI Stated Complaint: ABDOMINAL PAIN, AND RECTAL BLEEDING Time Seen by Provider: 01/14/18 18:03 Hx Obtained From: Patient Hx Last Menstrual Period: [id number] Onset/Duration: Sudden Onset - Yesterday night, Lasting Days - 2 days, Worse Since - Today Timing: Constant Severity Initially: Severe Severity Currently: Severe Pain Intensity: 8 Pain Scale Used: 0-10 Numeric Location: Diffuse - Lower abd Character: Sharp Aggravating Factor(s): Food Associated Signs and Symptoms: Positive: Diaphoresis, Blood in Stool, Decreased Appetite, Nausea, Other: - Positive: Light headedness, loss of appetite, fatigue. Negative: Fever Allergies/Adverse Reactions: Allergies Allergy/AdvReac Type Severity Reaction Status Date / Time aspirin Allergy Hives Verified 01/14/18 17:58 Penicillins Allergy Anaphylatic Verified 01/14/18 17:58 Shock PMH/Surg Hx/FS Hx/Imm Hx Previously Healthy: No Respiratory History: Asthma GI/ History: Gastroesophageal Reflux Psychological History: Anxiety, Depression Other History Of: Negative For: HIV, Hepatitis B, Hepatitis C, Anticoagulant Therapy - Surgical History Surgical History: Yes Surgery Procedure, Year, and Place: 2009 tubal ligation. ovarian cyst removal. wisdom teeth (2 removed). Cervical dysplagia - Family History Known Family History: Positive: Hypertension, Diabetes - Social History Occupation: Disabled Lives: With Family Alcohol Use: None Substance Use Type: None Smoking Status (MU): Never Smoked Tobacco Have You Smoked in the Last Year: No - Immunization History Most Recent Influenza Vaccination: none Review of Systems Constitutional: Negative - Fever, Fatigue, Other - Positive: Lightheadedness, loss of appetite Skin: Other - Positive: Diaphoresis Gastrointestinal: Nausea - VASCULAR TECHNOLOGIST SONOGRAPHER, Other - Positive: Melena Negative: Dry mouth Musculoskeletal: Negative - Difficulty ambulating All Other Systems Reviewed And Are Negative: Yes Physical Exam - Summary Physical Exam Summary: General: well-appearing, no pain distress Skin: warm, color reflects adequate perfusion, dry Head: normal Eyes: EOMI, MARILUZ ENT: normal Neck: supple, nontender Respiratory: CTA, breath sounds present Cardiovascular: RRR Abdomen: soft, Mild tenderness to palpation of the mid abdomen Bowel: Positive bowel sounds Musculoskeletal: normal, strength/ROM intact Neurological: sensory/motor intact, A&O x3 Psychological: affect/mood appropriate Triage Information Reviewed: Yes Vital Signs: Initial Vital Signs Temp 97.4 F 01/14/18 17:52 Pulse 80 01/14/18 17:52 Resp 20 01/14/18 17:52 BP 101/66 01/14/18 17:52 Pulse Ox 100 01/14/18 17:52 Vital Signs Reviewed: Yes Re-Evaluation - Re-Evaluation Second Eval Re-Evaluation Time: 20:14 Change: Improved - The pt notes mild improvement with soem abd pain but no fatigue. Abd Pain Female Course/Dx - Course Course Of Treatment: NO REBOUND ON ABDOMINAL EXAM. THE REPORTED BLEEDING IS SMALL AMOUNTS OF BLOOD MIXED WITH MUCOUS. NO PRIOR SURGERIES. CLINICALLY, NO OBSTRUCTION. ORTHOSTATICS NL. NO DIARRHEA IN CLINIC. DISCUSSED ABX TREATMENT VERSES SX TREATMENT ONLY. WILL START CIPRO/FLAGYL. STOOL AND LAB RESULTS PENDING. NO FEVER. DISCUSSED GOING TO THE ED IF SX CONTINUE OR WORSEN. F/U PMD. - Differential Dx/Diagnosis Provider Diagnoses: DIARRHEA. BLOODY DIARRHEA. ABDOMINAL PAIN Discharge - Sign-Out/Discharge Documenting (check all that apply): Patient Departure - Discharge Plan Condition: Stable Disposition: HOME Prescriptions: Ciprofloxacin TAB* [Cipro 500 MG TAB*] 500 mg PO BID #14 tab metroNIDAZOLE [Flagyl 500 MG TAB] 500 mg PO TID #21 tab Patient Education Materials: Gastrointestinal Bleeding (ED), Acute Diarrhea (ED ), Abdominal Pain (ED) Referrals: Josse Sloan MD [Primary Care Provider] - Additional Instructions: FOLLOW UP WITH YOUR DOCTOR. GO TO THE EMERGENCY DEPARTMENT FOR ANY WORSENING OF YOUR CONDITION; PAIN, FEVER , YOU FEEL ILL, THE BLEEDING PERSISTS OR WORSENS, YOU FEEL LIKE PASSING OUT OR QUESTIONS OR CONCERNS. - Billing Disposition and Condition Condition: STABLE Disposition: Home
[2018-01-14] MEDS ORDERED: NS 0.9% 1000 ML* 1,000 ML IV ONE (18:18)
[2018-01-14] MEDS ORDERED: Ketorolac INJ* 30 MG/ML 1 ML VIAL IV PUSH ONE (20:13)
[2018-01-14 20:56] VITALS: BP 99/61
[2018-01-15 11:13] LABS: EGFR Non-African American 108.2 (>60)
[2018-01-15 11:15] LABS: Hematocrit 29 % (35-47); Hemoglobin 8.3 g/dl (12.0-16.0); Mean Corpuscular HGB Conc 29 g/dl (31-36); Mean Corpuscular Hemoglobin 17 pg (27-31); Mean Corpuscular Volume 60 fL (80-97); Red Blood Count 4.78 10^6/ul (4.00-5.40); Red Cell Distribution Width 22 % (10.5-15); White Blood Count 7.1 10^3/ul (3.5-10.8)
[2018-01-15 12:27] LABS: ABS Basophils 0.1 10^3/ul (0-0.2); ABS Eosinophils 0.2 10^3/ul (0-0.6); ABS Lymphocytes 1.6 10^3/ul (1.0-4.8); ABS Monocytes 0.5 10^3/ul (0-0.8); ABS Neutrophils 4.8 10^3/ul (1.5-7.7); ABS Nucleated RBC 0 10^3/ul; Eosinophil % 2.3 % (0-6); Lymphocyte % 22.5 % (25-47); Mean Platelet Volume 9.7 um3 (7.4-10.4); Nucleated Red Blood Cells % 0; Platelet Count 300 10^3/ul (150-450)
== END 2018-01-14 21:00 | disposition home or self-care (01) ==
LOC: UCEAST 17:41
DX: R19.5 Other fecal abnormalities (principal); R10.30 Lower abdominal pain, unspecified; R61 Generalized hyperhidrosis; R11.0 Nausea; R42 Dizziness and giddiness; R53.83 Other fatigue; Z88.6 Allergy status to analgesic agent; Z88.0 Allergy status to penicillin
CPT/HCPCS: 36415; 80053; 83690; 85025; 86140; 96361; 96374; 99203; G0463; J1885

== ENCOUNTER 2018-05-28 11:39 | Emergency (ER) | payer MEDICARE, MEDICAID ==
[2018-05-28 11:58] VITALS: BP 105/68
--- NOTE | 2018-05-28 12:31 | ED ---
Skin Complaint - HPI Summary HPI Summary: 32 yo WF p/w right axillary lump that is painful x 3 days after shaving a few days prior to that. Size is about a mariam, but pain is so bad that she felt nauseous - History of Current Complaint Chief Complaint: UCSkin Time Seen by Provider: 05/28/18 12:04 Stated Complaint: SKIN COMPLAINT Hx Obtained From: Patient Hx Last Menstrual Period: 05/16/18 Onset/Duration: Started Days Ago Skin Exposure Onset/Duration: Days Ago Timing: Lasting Days Onset Severity: Moderate Current Severity: Severe Pain Intensity: 5 Skin Location: Discrete Character: Swelling, Redness, Raised, Painful Aggravating Symptom(s): Nothing Alleviating Symptom(s): Nothing Associated Signs & Symptoms: Negative - Allergy/Home Medications Allergies/Adverse Reactions: Allergies Allergy/AdvReac Type Severity Reaction Status Date / Time aspirin Allergy Hives Verified 05/28/18 11:58 Penicillins Allergy Anaphylatic Verified 05/28/18 11:58 Shock PMH/Surg Hx/FS Hx/Imm Hx Previously Healthy: Yes Endocrine/Hematology History: Denies: Hx Anticoagulant Therapy, Hx Blood Disorders, Hx Diabetes, Hx Thyroid Disease, Hx Unexplained Bleeding Cardiovascular History: Denies: Hx Congestive Heart Failure, Hx Deep Vein Thrombosis, Hx Hypertension , Hx Myocardial Infarction, Hx Pacemaker/ICD Respiratory History: Reports: Hx Asthma Denies: Hx Chronic Obstructive Pulmonary Disease (COPD), Hx Lung Cancer, Hx Pneumonia, Hx Pulmonary Embolism GI History: Reports: Hx Gastroesophageal Reflux Disease - daily PPI Denies: Hx Gall Bladder Disease, Hx Gastrointestinal Bleed, Hx Ulcer, Hx Urosepsis History: Denies: Hx Kidney Stones, Hx Renal Disease Musculoskeletal History: Denies: Hx Scoliosis Neurological History: Denies: Hx Dementia, Hx Headaches, Hx Migraine, Hx Seizures, Hx Transient Ischemic Attacks (TIA), Other Neuro Impairments/Disorders Psychiatric History: Reports: Hx Anxiety, Hx Depression - Surgical History Surgery Procedure, Year, and Place: 2009 tubal ligation. ovarian cyst removal. wisdom teeth (2 removed). Cervical dysplagia Infectious Disease History: No Infectious Disease History: Denies: Hx Clostridium Difficile, Hx Hepatitis, Hx Human Immunodeficiency Virus (HIV), Hx of Known/Suspected MRSA, Hx Shingles, Hx Tuberculosis, Hx Known/ Suspected VRE, Hx Known/Suspected VRSA, History Other Infectious Disease, Traveled Outside the [place] in Last 30 Days - Family History Known Family History: Positive: Hypertension, Diabetes - Social History Alcohol Use: None Hx Substance Use: No Substance Use Type: Reports: None Hx Tobacco Use: No Smoking Status (MU): Never Smoked Tobacco Have You Smoked in the Last Year: No Review of Systems Constitutional: Negative Eyes: Negative ENT: Negative Cardiovascular: Negative Respiratory: Negative Gastrointestinal: Negative Genitourinary: Negative Musculoskeletal: Negative Skin: Other - see HPI Neurological: Negative Psychological: Normal All Other Systems Reviewed And Are Negative: Yes Physical Exam - Summary Physical Exam Summary: Vital Signs Reviewed: Yes Skin: Positive: right axilary skin abscess size 1.5x1cm, erythematous and fluctuant, TTP Head/Face: Positive: Normal Head/Face Inspection Eyes: Positive: Normal ENT: Positive: Normal ENT inspection Neck: Positive: Supple Respiratory/Lung Sounds: Positive: Clear to Auscultation Cardiovascular: Positive: Normal, RRR, S1, S2 Abdomen Description: Positive: Nontender Musculoskeletal: Positive: Normal Neurological: Positive: Normal Psychiatric: Positive: Normal, Affect/Mood Appropriate Triage Information Reviewed: Yes Vital Signs On Initial Exam: Initial Vitals Temp Pulse Resp BP Pulse Ox 36.3 C 89 18 105/68 100 05/28/18 11:54 05/28/18 11:54 05/28/18 11:54 05/28/18 11:54 05/28/18 11:54 Diagnostics - Vital Signs Vital Signs Temp Pulse Resp BP Pulse Ox 05/28/18 11:54 36.3 C 89 18 105/68 100 - Laboratory Lab Statement: Any lab studies that have been ordered have been reviewed, and results considered in the medical decision making process. Course/Dx - Course Assessment/Plan: right axilary abscess- attempted aspiration and decompression with 18G needle but only small amount of pus and blood discharged, BUT decompressed significantly - Differential Diagnoses - Skin Complaint Differential Diagnoses: Abscess - Diagnoses Provider Diagnoses: Cutaneous abscess of right axilla Discharge - Sign-Out/Discharge Documenting (check all that apply): Patient Departure All imaging exams completed and their final reports reviewed: Yes - Discharge Plan Condition: Stable Disposition: HOME Prescriptions: oxyCODONE/Acetamin 5/325 MG* [Percocet 5/325 TAB*] 1 tab PO Q8H PRN 2 Days #6 tab MDD 3 PRN Reason: Pain Sulfamethox/Trimethoprim DS* [Bactrim DS 800/160 TAB*] 1 tab PO BID 10 Days #20 tab Referrals: Josse Sloan MD [Primary Care Provider] - - Billing Disposition and Condition Condition: STABLE Disposition: Home
== END 2018-05-28 12:45 | disposition home or self-care (01) ==
LOC: UCEAST 11:39
DX: L02.411 Cutaneous abscess of right axilla (principal); Z88.6 Allergy status to analgesic agent; Z88.0 Allergy status to penicillin
CPT/HCPCS: 10160; 99212; G0463

== ENCOUNTER 2018-10-26 17:52 | Emergency (ER) | payer MEDICAID, MEDICARE ==
[2018-10-26 18:13] VITALS: BP 109/67
--- NOTE | 2018-10-26 18:26 | UC ---
Complaint Female HPI - HPI Summary HPI Summary: 32-year-old female presents with several days of vaginal itching and a light white discharge. She states she also has some low abdominal pressure but denies monique belly pain or fever. She denies nausea vomiting or diarrhea. She does have a history of chronic anemia which she relates to her chronic heavy periods. [facility] has not been back to follow-up. Her last menstrual period was earlier this month and states that she has not had new sexual partners, but has been sexually active. - History Of Current Complaint Chief Complaint: UCGU Stated Complaint: ABDOMINAL PAIN Time Seen by Provider: 10/26/18 18:09 Hx Obtained From: Patient Hx Last Menstrual Period: start of october Pain Intensity: 5 - Allergies/Home Medications Allergies/Adverse Reactions: Allergies Allergy/AdvReac Type Severity Reaction Status Date / Time aspirin Allergy Hives Verified 10/26/18 18:13 Penicillins Allergy Anaphylatic Verified 10/26/18 18:13 Shock Home Medications: Home Medications Amitriptyline TAB* [Elavil TAB*] 10 mg PO BEDTIME 10/26/18 [History Confirmed ] PMH/Surg Hx/FS Hx/Imm Hx Previously Healthy: No Endocrine History: Other - Chronic iron deficiency anemia, fibromyalgia Respiratory History: Asthma Other History Of: Negative For: HIV, Hepatitis B, Hepatitis C, Anticoagulant Therapy - Surgical History Surgical History: Yes Surgery Procedure, Year, and Place: 2009 tubal ligation. ovarian cyst removal. wisdom teeth (2 removed). Cervical dysplagia - Family History Known Family History: Positive: Hypertension, Diabetes - Social History Alcohol Use: None Substance Use Type: None Smoking Status (MU): Never Smoked Tobacco Have You Smoked in the Last Year: No - Immunization History Most Recent Influenza Vaccination: none Review of Systems All Other Systems Reviewed And Are Negative: Yes Constitutional: Negative: Fever Skin: Negative: Rash ENT: Positive: Negative Respiratory: Positive: Negative Gastrointestinal: Positive: Abdominal Pain - Suprapubic pressure. Negative: Vomiting, Nausea Genitourinary: Positive: Vaginal/Penile Itching, Vaginal/Penile Discharge Motor: Positive: Negative Neurological: Positive: Negative Physical Exam Appearance: Well-Appearing, No Pain Distress, Well-Nourished Vital Signs: Initial Vital Signs Temp 98.3 F 10/26/18 18:10 Pulse 86 10/26/18 18:10 Resp 16 10/26/18 18:10 BP 109/67 10/26/18 18:10 Pulse Ox 100 10/26/18 18:10 Eyes: Positive: Other: - Mild pallor of the conjunctiva ENT: Positive: Normal ENT inspection Neck: Positive: Supple Respiratory: Positive: Lungs clear Cardiovascular: Positive: RRR Abdomen Description: Positive: Nontender, Soft. Negative: Distended, Guarding Bowel Sounds: Positive: Present Musculoskeletal: Positive: Strength Intact, ROM Intact Neurological: Positive: Alert Skin Exam: Other - Mild pallor Diagnostics - Laboratory Lab Results: GC/chlamydia and affirm testing are pending. Complaint Female Dx - Course Course Of Treatment: I reviewed the patient's previous visits and laboratories. She runs a chronic anemia around 8. She is iron deficient and has not had any GI workup in the past. She states she is not having any bloody stools and the only time she had in the past was related to hemorrhoids. There is no family history for Crohn's or colitis. She was [facility] and also for GI evaluation should the [employer]ATOR issue not rectify her anemia. evaluation shows a thick cottage cheese like discharge consistent with yeast. Her symptoms are mostly burning discomfort. There are no other rash, lesions or discharge. She has no evidence for PID. - Differential Dx/Diagnosis Differential Diagnosis/HQI/PQRI: Ovarian Cyst, Pelvic Inflammatory Disease, Sexually Transmitted Disease, Tubo-ovarian Abscess, Other - yeast infection, BV Provider Diagnosis: Chronic iron deficiency anemia, Vaginal candidiasis Discharge - Sign-Out/Discharge Documenting (check all that apply): Patient Departure All imaging exams completed and their final reports reviewed: No Studies - Discharge Plan Condition: Improved Disposition: HOME Prescriptions: Fluconazole 150 MG TAB* [Diflucan 150 MG TAB*] 150 mg PO ONCE #1 tablet Patient Education Materials: Yeast Infection (ED) Referrals: Josse Sloan MD [Primary Care Provider] - Additional Instructions: Take a probiotic or eat activita a yogurt. Return with fever, increased belly pain, worse, new symptoms or other concerns. [facility] to [facility] for your [facility]. You will need to have your heavy menstrual periods treated. If this does not correct the anemia it is suggested that he have GI evaluation including likely colonoscopy. - Billing Disposition and Condition Condition: IMPROVED Disposition: Home
[2018-10-26] MEDS ORDERED: Clindamycin CAP* 150 MG PO ONE (18:38)
--- NOTE | 2018-10-27 16:17 | UC ---
- Progress Note Progress Note: lab results returned negative for lawanda assure patient has resolve of symptoms if not please ask patient to seek follow up care-- Course/Dx - Diagnoses Provider Diagnoses: Chronic iron deficiency anemia, Vaginal candidiasis Discharge - Sign-Out/Discharge Documenting (check all that apply): Patient Departure All imaging exams completed and their final reports reviewed: No Studies - Discharge Plan Condition: Improved Disposition: HOME Prescriptions: Fluconazole 150 MG TAB* [Diflucan 150 MG TAB*] 150 mg PO ONCE #1 tablet Patient Education Materials: Yeast Infection (ED) Referrals: Josse Sloan MD [Primary Care Provider] - Additional Instructions: Take a probiotic or eat activita a yogurt. Return with fever, increased belly pain, worse, new symptoms or other concerns. [facility] your [facility]. You will need to have your heavy menstrual periods treated. If this does not correct the anemia it is suggested that he have GI evaluation including likely colonoscopy. - Billing Disposition and Condition Condition: IMPROVED Disposition: Home
[2018-10-29 12:58] LABS: Neisseria gonorrhoeae (GC) RNA Negative (Negative)
[2018-10-29 13:08] LABS: Trichomonas vaginalis Result Negative (Negative)
== END 2018-10-26 19:00 | disposition home or self-care (01) ==
LOC: UCEAST 17:52
DX: B37.3 Candidiasis of vulva and vagina (principal); D50.9 Iron deficiency anemia, unspecified; J45.909 Unspecified asthma, uncomplicated; Z88.8 Allergy status to other drugs, medicaments and biological substances; Z88.0 Allergy status to penicillin
CPT/HCPCS: 87480; 87491; 87510; 87591; 87661; 99212; G0463

== ENCOUNTER 2018-11-22 10:19 | Emergency (ER) | payer MEDICARE, MEDICAID, OTHER ==
[2018-11-22 10:31] VITALS: BP 97/62
--- NOTE | 2018-11-22 10:45 | UC ---
Neck Pain HPI - HPI Summary HPI Summary: Patient presents to urgent care with pain discomfort in her left side of her neck. Patient states 3 days ago was moving furniture. Patient states she felt a little twinge. Patient states this since this time she's been having muscle spasm in her left upper neck. Patient did she has paresthesias down her arm. Patient has any weakness of her hand or arm. Patient has been taking Motrin/ Tylenol using lidocaine patch with little improvement - short term. No fever, chills. No direct trauma. Pt has had similar sx in the past but not "this intense" RHD pt's medications reviewed this visit - History of Current Complaint Chief Complaint: UCGeneralIllness Stated Complaint: NECK PAIN Time Seen by Provider: 11/22/18 10:38 Hx Obtained From: Patient Hx Last Menstrual Period: 11/10/18 Pain Intensity: 7 - Allergies/Home Medications Allergies/Adverse Reactions: Allergies Allergy/AdvReac Type Severity Reaction Status Date / Time aspirin Allergy Hives Verified 11/22/18 10:31 Penicillins Allergy Anaphylatic Verified 11/22/18 10:31 Shock PMH/Surg Hx/FS Hx/Imm Hx - Additional Past Medical History Additional PMH: fibromylagia Previously Healthy: Yes Other History Of: Negative For: HIV, Hepatitis B, Hepatitis C, Anticoagulant Therapy - Surgical History Surgical History: Yes Surgery Procedure, Year, and Place: 2009 tubal ligation. ovarian cyst removal. wisdom teeth (2 removed). Cervical dysplagia - Family History Known Family History: Positive: Hypertension, Diabetes, Non-Contributory - Social History Occupation: Employed Full-time Lives: With Family Alcohol Use: None Substance Use Type: None Smoking Status (MU): Never Smoked Tobacco Have You Smoked in the Last Year: No - Immunization History Most Recent Influenza Vaccination: none Review of Systems All Other Systems Reviewed And Are Negative: Yes Constitutional: Positive: Negative Skin: Positive: Negative Musculoskeletal: Positive: Other: - left sided neck pain Neurological: Positive: Paresthesia Is Patient Immunocompromised?: No Physical Exam - Summary Physical Exam Summary: Vital Signs Reviewed: Yes A+Ox3, mild discomfort Eyes: Conjunctiva Clear heent: TM x 2 clear, mmoist, Neck: Positive: no pain c/t/l/s PT with rom with discomfort left lateral cerival paraspinal and left trapezius Respiratory: Positive: No respiratory distress, No accessory muscle use + CTA throughout no w/r Cardiovascular: RRR nl s1, s2 no m/r CBT <2 sec Musculoskeletal Exam: No pain spinous process + TTP left trapezius, palpable spasm Full abduction, extension with mild left trapezius discomfort cervical ROM with discomfort right lateral rotaion and flexion Neurological: Positive: Alert, + sensation throughout + thumb up, a ok finger spread, finger cross Psychological: Positive: Normal Response To Family Skin: Positive: no rash, no ecchymosis Triage Information Reviewed: Yes Vital Signs: Initial Vital Signs Temp 98.8 F 11/22/18 10:28 Pulse 92 11/22/18 10:28 Resp 18 11/22/18 10:28 BP 97/62 11/22/18 10:28 Pulse Ox 100 11/22/18 10:28 Diagnostics - Radiology No standard instances Radiology Interpretation Completed By: Radiologist - Patient Name: ELIZABET TRAYLOR Medical Record#: [id number] Ordering Physician: Dayan Garcia MD Acct.#: [id number] : 1985 Age: 33 Sex: F Location: [facility] Exam Date: 11/22/18 1053 ADM Status: REG ER Order Information: SP CERVICAL 2- 3 VWS Accession Number: [id number] CPT: 24158 Indication: LEFT upper neck pain. LEFT upper extremity paresthesias. Comparison: No relevant prior exams available on the [facility] [place]. Technique: AP, open-mouth odontoid, and lateral views cervical spine. Report: Straightening relative to normal cervical lordosis without subluxation at any level. Negative for fracture. Multilevel degenerative spondylosis. Mild C4-C5 and C5-C6 and moderate C6-C7 disc space narrowing with associated vertebral endplate osteophytosis. Unremarkable prevertebral soft tissue contours. IMPRESSION: #. Degenerative spondylosis. <Electronically signed by Forrest Interiano MD in OV> 11/22/18 1130 Dictated By: Forrest Interiano MD Dictated Date/Time: 11/22/18 1130 Transcribed Date/Time: 11/22/18 1849 Copy to: CC:Josse Sloan MD; Dayan Garcia MD Imaging - [facility] - [facility] [id number] [place] [id number] [place] [id number] ph ([phone]) ph ([phone] ) ph ([phone]) This report is only to be considered final once signed by the Provider(s) as displayed in the "<Electronically Signed by >" field (s). Absence of a signature indicates the report is in a draft status and still needs to be finalized. In the event this document was created by someone other than the signing Provider, the individual initiating the document will be listed in the "Entered by:" or "Dictated by:" cabral. 1 of Re-Evaluation - Re-Evaluation First Eval Comment: reviewed imaging. motrin.apap. sling. flexeril. heat/stretch. rest. medrol dose pack. PT referral Neck Pain Course/Dx - Course Course Of Treatment: Patient percent to urgent care for evaluation of her left upper posterior shoulder. Patient states he was moving furniture 3 days ago and felt a pull. Patient with pain with direct palpation. Improved at rest. Patient with intermittent. She did not left arm. No weakness. On exam vital signs are stable. Patient with mild discomfort. Pain worse with direct palpation. Distal CSM intact and full. We'll check imaging studies if there is any sinus arthritis Will's to prednisone we'll place a sling Motrin/Tylenol while at home predilection as well as Flexeril. Patient requesting a work restriction not removal. - Differential Dx/Diagnosis Provider Diagnosis: Cervical paraspinal muscle spasm, Trapezius muscle spasm Discharge - Sign-Out/Discharge Documenting (check all that apply): Patient Departure All imaging exams completed and their final reports reviewed: Yes - Discharge Plan Condition: Stable Disposition: HOME Prescriptions: Cyclobenzaprine TAB* [Flexeril 10 MG TAB*] 5 mg PO Q8HR PRN #15 tab PRN Reason: muscle spasm methylPREDNISolone [Medrol Dosepak 4 MG*] 1 mg PO .SEE SONIA INSTRUCTION #1 tab Patient Education Materials: Cervical Strain (ED), Muscle Strain (ED) Forms: *Gen. Provider Communication Referrals: Josse Sloan MD [Primary Care Provider] - Additional Instructions: - Okay to alternate ibuprofen (Advil, Motrin) 600mg and Tylenol every 3hours as needed for pain. -Take flexeril - muscle relaxer as prescribed- this will cause sedation - do not drive, operate machinery or drink alcohol while taking this medication -Apply moist heat to your back for 20 minutes at a time, 4-5 times a day. Once your muscles are warm, slow gentle stretching exercises are important -use sling for comfort and support - allow the sling to hold the weight of your arm -Contact your doctor on Saturday to schedule a follow-up appointment - Billing Disposition and Condition Condition: STABLE Disposition: Home
[2018-11-22] MEDS ORDERED: Ibuprofen TAB* 600 MG PO ONE (10:55)
== END 2018-11-22 11:47 | disposition home or self-care (01) ==
LOC: UCEAST 10:19
DX: M62.838 Other muscle spasm (principal)
CPT/HCPCS: 72040; 99213; A9270-GY; G0463